=== PATIENT | male | born 1960 | race Caucasian/White ===

== ENCOUNTER 2022-03-12 12:47 | Inpatient (IN) | payer OTHER ==
[~2022-03-12] VITALS: Ht 170.2 cm; Wt 85.0 kg
[2022-03-12] VITALS (332 sets, daily range): BP systolic 58–99; BP diastolic 38–69; PULSE 124–127; TEMP 98–98.2; O2SAT 35–100
[2022-03-12] MEDS ORDERED: VENTOLIN0.09 MG IH (13:06)
[2022-03-12] MEDS ORDERED: PRILOSEC 20MG20 MG PO (13:06)
[2022-03-12] MEDS ORDERED: RT ADVAIR 128 DISKUS IH (13:06)
[2022-03-12] MEDS ORDERED: THALITONE PO (13:07)
[2022-03-12] MEDS ORDERED: ZOCOR 40MG40 MG PO (13:08)
[2022-03-12] MEDS ORDERED: ADALAT CC60 MG PO (13:08)
[2022-03-12] MEDS ORDERED: SINGULAIR 110 MG/TAB PO (13:08)
[2022-03-12] MEDS ORDERED: COZAAR100 MG PO (13:09)
[2022-03-12] MEDS ORDERED: ASTELIN NASAL S34 ML NS (13:09)
[2022-03-12] MEDS ORDERED: MOBIC15 MG PO (13:10)
[2022-03-12 13:20] LABS: HEMATOCRIT 39.5 % (42.0-52.0); MEAN CELL VOLUME 89 fl (80.0-100.0); MEAN CORPUSCULAR HEMOGLOBIN 29 pg (27-31); MEAN CORPUSCULAR HGB CONC 33 g/dl (33.0-37.0); MEAN PLATELET VOLUME 10.2 fl (7.4-10.4); PLATELET COUNT 276 K/mm3 (130-400); RED BLOOD COUNT 4.46 M/mm3 (4.20-5.60); REDCELL DISTRIBUTION WIDTH-CV 12.9 % (11.5-14.5)
[2022-03-12 13:34] LABS: ALANINE AMINOTRANSFERASE 30 U/L (0-55); ALBUMIN 2.8 gm/dL (3.4-4.8); ALKALINE PHOSPHATASE 111 U/L (40-150); ANION GAP 23 mmol/L (7-16); AST,SGOT 187 U/L (5-34); BILIRUBIN,TOTAL 1.2 mg/dL (0.2-1.2); BLOOD UREA NITROGEN 51 mg/dL (8-26); CALCIUM 9.3 mg/dL (8.4-10.2); CARBON DIOXIDE 22 mmol/L (23-31); CHLORIDE 96 mmol/L (98-107); CREATININE, serum 4.88 mg/dL (0.72-1.25); GLUCOSE 113 mg/dL (70-99); POTASSIUM 3.8 mmol/L (3.5-4.5); SODIUM 141 mmol/L (136-145); TOTAL PROTEIN 6.8 gm/dL (6.2-8.1)
[2022-03-12 13:40] LABS: TROPONIN-I < 0.010 ng/mL (0.00-0.033)
[2022-03-12 13:50] LABS: BAND 57 % (0-10); LYMPHOCYTE 10 % (20.0-51.0); METAMYELOCYTE 4 % (0-0); MYELOCYTE 1 % (0-0); NEUTROPHILS 14 % (42.0-75.2); PLATELET ESTIMATE NORMAL (NORMAL)
--- NOTE | 2022-03-12 14:30 | NUR ---
1430 patient arrived to unit; patient alert and oriented; blood pressure 93/70; on arrival to unit patient started levophed and bolus fluids going. Dr. shipley and tony. new orders obtained
[2022-03-12 15:20] LABS: INR 1.2 (0.8-3.0); PROTHROMBIN TIME 13.8 SECONDS (9.7-12.8)
[2022-03-12 15:20] LABS: ALANINE AMINOTRANSFERASE 23 U/L (0-55); ALBUMIN 2.7 gm/dL (3.4-4.8); ALKALINE PHOSPHATASE 110 U/L (40-150); AST,SGOT 179 U/L (5-34); BILIRUBIN,TOTAL 1.1 mg/dL (0.2-1.2); LIPASE 183 U/L (8-78); TOTAL PROTEIN 6.6 gm/dL (6.2-8.1); TROPONIN-I < 0.010 ng/mL (0.00-0.033)
[2022-03-12 15:22] LABS: PARTIAL THROMBOPLASTIN TIME 33.1 SECONDS (26.0-37.0)
[2022-03-12 15:25] LABS: C-REACTIVE PROTEIN 46.72 mg/dL (0.00-0.50)
--- NOTE | 2022-03-12 15:42 | NUR ---
1330- PT TO MEDICAL FLOOR ROOM 359- ASSESSMENT COMPLETED. VITALS OBTAINED. BP LOW. DR. MAURO CONTACTED RECEIVED ORDERS. PLEASE SEE EMAR. PT PLACED IN [place] POSITION. 1344- PT BP IS 74/49 1418- 66/50 DR. MAURO NOTIFIED OF PATIENTS CONTINUED LOW BP. ORDERS RECEIVED. PT MOVED TO ICU. DR. YAÑEZ NOITIFIED OF CONSULT. REPORT GIVEN TO JARROD BERGERON IN ICU BEDSIDE AT 1430. CARE RELINQUISED.
[2022-03-12 15:47] LABS: BILIRUBIN,DIRECT 0.8 mg/dL (0.0-0.5)
--- NOTE | 2022-03-12 19:45 | NUR ---
Received report from JARROD Shen.
--- NOTE | 2022-03-12 21:00 | NUR ---
Patient resting quietly in bed. NG tube to right nare to LIS with brown, clear drainage. Patient tachycardic ranging 115-125, SR; all other vitals within normal limits. Patient is on room air. He continues to receive levophed drip, see IV drip titrations. Patient reports mild abdominal pain that is worse with palpation and movement. He denies needing PRN pain medication at this time. Left hip incision site is covered with an aquacell dressing that is clean, dry, and intact.
[2022-03-12 22:34] LABS: CREATININE, serum 5.04 mg/dL (0.72-1.25)
[2022-03-12 22:40] LABS: FRACTIONAL EXCRETION OF NA+ 0.64 %
[2022-03-12 22:46] LABS: CREATININE, serum 5.09 mg/dL (0.72-1.25); POTASSIUM 3.8 mmol/L (3.5-4.5)
--- NOTE | 2022-03-12 23:00 | NUR ---
Attempted to contact Dr. Sherwood regarding patient's poor urine output as reported by day shift RN, Hermelinda. At this time, patient has voided a total of approximately 25mL urine for NOC shift. Dr. Sherwood did not answer; a message was left to call back. Notified Dr. Paul with [facility]. Dr. Paul voiced concern for abdominal compartment syndrome and requested that a STAT abdominal pressure be obtained in addition to a repeat BMP. Abdominal pressure reading of [address] Paul notified. No further orders received at this time as an attempt to notify nephrology has already been made.
[2022-03-12 23:28] LABS: MAGNESIUM 1.8 mg/dL (1.6-2.6)
[2022-03-13] VITALS (1075 sets, daily range): BP systolic 79–103; BP diastolic 46–75; PULSE 110–125; TEMP 97.7–98.1; O2SAT 43–100
[2022-03-13 09:23] LABS: ANION GAP 23 mmol/L (7-16); BLOOD UREA NITROGEN 72 mg/dL (8-26); CARBON DIOXIDE 18 mmol/L (23-31); CHLORIDE 97 mmol/L (98-107); CREATININE, serum 5.53 mg/dL (0.72-1.25); GLUCOSE 89 mg/dL (70-99); LIPASE 35 U/L (8-78); POTASSIUM 3.9 mmol/L (3.5-4.5); SODIUM 138 mmol/L (136-145)
--- NOTE | 2022-03-13 10:24 | NUR ---
Initial visit; Patient thanked Crepe Machine Operator for looking in on him and offering spiritual care. He appeared to not be interested in further care.
--- NOTE | 2022-03-13 10:28 | NUR ---
MILY met with the patient and his , Melba (ph#[phone]), to discuss discharge plan. The patient lives in [place] with his . He reports independence with ADLs and has a cane, walker, and a wheelchair available if needed. The patient's PCP is Dr. Momo Castaneda and he receives his medications from [facility] on [address] in . He reports no difficulties obtaining his meds. The patient does not have a DPOA-HC, but he was interested in obtaining a form. MILY provided. The patient had a hip replacement on Friday. He got outpatient PT set up at [facility] in . The patient states that plan is to return home with his and receive outpatient PT at [facility] upon discharge. No additional needs at this time. *Discharge plan: home with and outpatient PT*
[2022-03-13 11:41] LABS: ALBUMIN 2.3 gm/dL (3.4-4.8); ALKALINE PHOSPHATASE 98 U/L (40-150); AST,SGOT 108 U/L (5-34); BILIRUBIN,TOTAL 0.9 mg/dL (0.2-1.2); TOTAL PROTEIN 6.1 gm/dL (6.2-8.1)
[2022-03-13 11:42] LABS: ALANINE AMINOTRANSFERASE < 6 U/L (0-55)
[2022-03-13 12:56] LABS: HEMATOCRIT 35.4 % (42.0-52.0); HEMOGLOBIN 11.5 g/dl (13.5-18.0); MEAN CELL VOLUME 90 fl (80.0-100.0); MEAN CORPUSCULAR HEMOGLOBIN 29 pg (27-31); MEAN CORPUSCULAR HGB CONC 33 g/dl (33.0-37.0); MEAN PLATELET VOLUME 10.9 fl (7.4-10.4); PLATELET COUNT 242 K/mm3 (130-400); RED BLOOD COUNT 3.94 M/mm3 (4.20-5.60); REDCELL DISTRIBUTION WIDTH-CV 12.9 % (11.5-14.5)
[2022-03-13 12:57] LABS: BAND 54 % (0-10); EOSINOPHIL 1 % (0-4); LYMPHOCYTE 24 % (20.0-51.0); METAMYELOCYTE 8 % (0-0); MYELOCYTE 1 % (0-0); NEUTROPHILS 5 % (42.0-75.2); PLATELET ESTIMATE NORMAL (NORMAL)
--- NOTE | 2022-03-13 18:27 | NUR ---
0630[facility] FROM JARROD FRAUSTO. PT RESTING IN BED. NS INFUSING AT 150ML/HR, LEVOPHED AT 36.8ML/HR, BOTH TO RED PORT OF PICC LINE TO R UPPER ARM. PICC LINE FLUSHES EASILY AND GOOD BLOOD RETURN NOTED TO BOTH LUMENS. DRESSING CDI. LAM IN PLACE. NG TO R NARE ON LOW INTERMITENT SUCTION. THERE ARE NO MEASUREMENT NUMBERS ON TUBING, TUBING MEASURES 64CM FROM NARE TO BLUE HUB WHERE NG HOOKS TO SUCTION TUBING. 0800 IAP MEASUREMENT DONE, READING IS 4MMHG, DR YAÑEZ NOTIFIED. 1130 PT SITS ON SIDE OF BED. GOOD MOBILITY NOTED. DRESSING TO L HIP IS CDI. PT DOES APPLY ICE INTERMITTENLY THROUGHOUT THE DAY. [place] HO[place] ARE IN PLACE TO BOTH LEGS, NO SWELLING NOTED, GOOD PEDAL PULSES PALPATED. 1300 PT UP TO BEDSIDE COMMODE FOR BM. MEDIUM LIQUID STOOL. [address] MAURO TO NOTIFY HIM OF URINE OUTPUT OF 90ML THIS SHIFT. NO NEW ORDERS RECEIVED. DR KILGORE CANCEL ORDER FOR UA NURSE IS UNABLE TO OBTAIN SPECIMEN. 1830 PT HAS HAD ICE CHIPS THROUGHOUT THE DAY FOR A TOTAL OF 400ML PO INTAKE, 90ML OF URINE FROM LAM, AND 1650 OF LIGHT GREEN DRAINAGE TO NG SUCTION CANISTER. AT TIME OF THIS NOTE PT IS RESTING IN BED, DENIES NEEDS. CALL LIGHT IN REACH.
[2022-03-14] VITALS (1375 sets, daily range): BP systolic 96–123; BP diastolic 65–82; PULSE 110–120; TEMP 97.7–98.1; O2SAT 81–100
[2022-03-14 06:12] LABS: HEMOGLOBIN 10.1 g/dl (13.5-18.0); MEAN CELL VOLUME 88 fl (80.0-100.0); MEAN CORPUSCULAR HEMOGLOBIN 29 pg (27-31); MEAN CORPUSCULAR HGB CONC 33 g/dl (33.0-37.0); MEAN PLATELET VOLUME 11.4 fl (7.4-10.4); PLATELET COUNT 184 K/mm3 (130-400); RED BLOOD COUNT 3.46 M/mm3 (4.20-5.60); REDCELL DISTRIBUTION WIDTH-CV 13.2 % (11.5-14.5)
[2022-03-14 06:16] LABS: HEMATOCRIT 30.3 % (42.0-52.0)
[2022-03-14 06:26] LABS: CALCIUM 7.5 mg/dL (8.4-10.2); CREATININE, serum 6.77 mg/dL (0.72-1.25); POTASSIUM 3.8 mmol/L (3.5-4.5)
[2022-03-14 06:48] LABS: BAND 47 % (0-10); EOSINOPHIL 4 % (0-4); LYMPHOCYTE 12 % (20.0-51.0); NEUTROPHILS 26 % (42.0-75.2); PLATELET ESTIMATE NORMAL (NORMAL)
[2022-03-14 08:32] LABS: PATHOLOGY DIFF REVIEW OK
[2022-03-15] VITALS (769 sets, daily range): BP systolic 94–129; BP diastolic 60–77; PULSE 71–117; TEMP 97.5–98.7; O2SAT 74–100
[2022-03-15 04:35] LABS: MEAN CELL VOLUME 86 fl (80.0-100.0); MEAN CORPUSCULAR HGB CONC 33 g/dl (33.0-37.0); MEAN PLATELET VOLUME 10.4 fl (7.4-10.4); PLATELET COUNT 119 K/mm3 (130-400); RED BLOOD COUNT 2.83 M/mm3 (4.20-5.60)
[2022-03-15 04:44] LABS: CREATININE, serum 5.89 mg/dL (0.72-1.25); POTASSIUM 3.4 mmol/L (3.5-4.5)
[2022-03-15 04:46] LABS: HEMATOCRIT 24.4 % (42.0-52.0); MEAN CORPUSCULAR HEMOGLOBIN 29 pg (27-31)
[2022-03-15 04:48] LABS: HEMOGLOBIN 8.1 g/dl (13.5-18.0)
[2022-03-15 05:06] LABS: CALCIUM 7.3 mg/dL (8.4-10.2)
--- NOTE | 2022-03-15 07:00 | NUR ---
BEDSIDE REPORT RECEIVED FROM JARROD ERNANDEZ. NG TUBE TO LIS. PT ALLOWED ICE CHIPS AT THIS TIME. DRESSING TO LEFT HIP SITE CLEAN, DRY, AND INTACT. PICC LINE TO RIGHT UPPER ARM. FC TO DEPENDENT DRDAINAMARGARITA. PT ALERT AND ORIENTED THIS AM. OFFERS NO COMPLAINTS.
[2022-03-15 11:10] LABS: MEAN CELL VOLUME 87 fl (80.0-100.0); MEAN CORPUSCULAR HGB CONC 33 g/dl (33.0-37.0); MEAN PLATELET VOLUME 10.3 fl (7.4-10.4); PLATELET COUNT 143 K/mm3 (130-400); RED BLOOD COUNT 3.54 M/mm3 (4.20-5.60); REDCELL DISTRIBUTION WIDTH-CV 13.2 % (11.5-14.5)
[2022-03-15 11:16] LABS: HEMATOCRIT 30.8 % (42.0-52.0); HEMOGLOBIN 10.2 g/dl (13.5-18.0); MEAN CORPUSCULAR HEMOGLOBIN 29 pg (27-31)
--- NOTE | 2022-03-15 14:39 | NUR ---
PT BEING DOWNGRADED TO MEDICAL STATUS. REPORT GIVEN TO JARROD MIMS. PT'S AWARE OF TRANSFER.
--- NOTE | 2022-03-15 15:00 | NUR ---
PT TRASFERRED TO ROOM 324 VIA WHEELCHAIR FROM ICU. VS ARE STABLE. ASSESSMENT AND MED REC COMPLETED. PT DENIES PAIN AND ANY OTHER NEEDS AT THIS TIME. CALL LIGHT WITHIN REACH.
[2022-03-15] MEDS ORDERED: ASPIRIN E.C. 8181 MG PO (15:22)
[2022-03-15] MEDS ORDERED: ROXICODONE 55 MG/TAB PO (15:23)
--- NOTE | 2022-03-15 20:00 | NUR ---
PT IN BED, ASSISTED TO BATHROOM WITH WALKER AND STEADY GAIT. HAS RYLAN DRSG TO LT HIP D/I. HAS RT PICC WITH IVF INFUSING AT 150CC/HR. REPORTS LOOSE STOOLS. LAM CATHETER TO BSD WITH YELLOW URINE. MILD LOWER EXT EDEMA PRESENT. IS ALERT AND ORIENTED X4. SLIGHTLY SHORT OF BREATH WITH ACTIVITY, WEARING OXYGEN AT 2L/NC, RESCUE INHALER AT BEDSIDE. TEDS AND SCDS ON.
[2022-03-16 03:51] VITALS: BP 142/70; PULSE 95; TEMP 98.3
--- NOTE | 2022-03-16 05:00 | NUR ---
LAB DRAWN FROM PICC. DENIES PAIN. IVF CONTINUE AT 150CC/HR.
[2022-03-16 08:00] VITALS: BP 142/88; PULSE 100; TEMP 97.8
[2022-03-16 10:59] LABS: MEAN CELL VOLUME 88 fl (80.0-100.0); MEAN CORPUSCULAR HGB CONC 33 g/dl (33.0-37.0); MEAN PLATELET VOLUME 11.2 fl (7.4-10.4); PLATELET COUNT 127 K/mm3 (130-400); RED BLOOD COUNT 3.12 M/mm3 (4.20-5.60); REDCELL DISTRIBUTION WIDTH-CV 13.7 % (11.5-14.5)
[2022-03-16 11:02] LABS: HEMATOCRIT 27.3 % (42.0-52.0); HEMOGLOBIN 9.1 g/dl (13.5-18.0); MEAN CORPUSCULAR HEMOGLOBIN 29 pg (27-31)
[2022-03-16 11:29] LABS: ALBUMIN 1.7 gm/dL (3.4-4.8); CALCIUM 7.9 mg/dL (8.4-10.2); CREATININE, serum 6.73 mg/dL (0.72-1.25); PHOSPHOROUS 6.3 mg/dL (2.3-4.7); POTASSIUM 3.2 mmol/L (3.5-4.5)
[2022-03-16 11:40] LABS: BAND 19 % (0-10); EOSINOPHIL 1 % (0-4); LYMPHOCYTE 9 % (20.0-51.0); NEUTROPHILS 59 % (42.0-75.2); PLATELET ESTIMATE NORMAL (NORMAL)
[2022-03-16 12:00] VITALS: BP 128/74; PULSE 102; TEMP 97.8
[2022-03-16 16:00] VITALS: BP 131/77; PULSE 98; TEMP 98.5
[2022-03-16 19:41] VITALS: BP 131/84; PULSE 104; TEMP 98.1
--- NOTE | 2022-03-16 20:00 | NUR ---
PT ASSISTED TO BATHROOM TO VOID, CATHETER REMOVED TODAY. CONTINUES TO HAVE ARM AND LEG SWELLING. RT PICC FLUSHES WELL. VOIDS YELLOW URINE. BACK TO BED WITH SHORTNESS OF BREATH NOTED. AQUACEL INTACT TO LEFT HIP. TAKING CLEAR LIQUIDS WITHOUT N/V. DENIES NEED FOR PAIN MEDS.
[2022-03-17] VITALS (7 sets, daily range): BP systolic 113–138; BP diastolic 70–83; PULSE 94–105; TEMP 97.7–98.5
--- NOTE | 2022-03-17 08:00 | NUR ---
PATIENT IS A&O AND SITTING UP IN BEDSIDE CHAIR. VSS. DENIES COMPLAINTS. LEFT HIP DRESSING IS CD&I WITH AQUACEL. PATIENT REFUSING ICE PACK FOR LEFT HIP AT THIS TIME DUE TO FEELING COLD. ROOM TEMP TURNED UP AND ANOTHER BLANKET GIVEN TO PATIENT. CLEAR LIQUID TRAY ORDERED. AM MEDS GIVEN. IV ABX INFUSING VIA PUMP INTO RIGHT PICC. HEAD TO TOE ASSESSMENT COMPLETE. NO OTHER NEEDS AT THIS TIME. CALL LIGHT IN REACH.
[2022-03-17 10:32] LABS: MEAN CELL VOLUME 89 fl (80.0-100.0); MEAN CORPUSCULAR HGB CONC 33 g/dl (33.0-37.0); MEAN PLATELET VOLUME 10.1 fl (7.4-10.4); PLATELET COUNT 143 K/mm3 (130-400); RED BLOOD COUNT 3.37 M/mm3 (4.20-5.60); REDCELL DISTRIBUTION WIDTH-CV 13.8 % (11.5-14.5)
[2022-03-17 10:38] LABS: HEMATOCRIT 29.9 % (42.0-52.0); HEMOGLOBIN 9.8 g/dl (13.5-18.0); MEAN CORPUSCULAR HEMOGLOBIN 29 pg (27-31)
[2022-03-17 10:46] LABS: CALCIUM 8.6 mg/dL (8.4-10.2); CREATININE, serum 7.09 mg/dL (0.72-1.25); PHOSPHOROUS 5.9 mg/dL (2.3-4.7); POTASSIUM 3.3 mmol/L (3.5-4.5)
--- NOTE | 2022-03-17 11:00 | NUR ---
NEPHROLOGY P.A. MAKING ROUNDS. NURSING EXPRESSED CONCERN ABOUT NO DAILY LAB ORDERED AND HIS BUN & CREAT HAVE BEEN TRENDING UP. NURSING ALSO EXPRESSED CONCERNS ABOUT PATIENTS NUTRITIONAL STATUS. PATIENT HAS NOT ATE IN APPROX 6 DAYS OR MORE. CURRENTLY ON CLEAR LIQUID DIET AND PATIENT'S SERUM ALBUMIN IS NOW 2.0. PATIENT DENIES N/V. PATIENT IS ALSO BURPING A LOT AND PASSING FLATUS. WITH PATIENT'S CURRENT PICC LINE ACCESS, NURSING ASKED NEPHROLOGY, WHO IS ACTING PATIENT'S ATTENDING, IF TPN WOULD BE CONSIDERED/APPROPRIATE WHICH WAS DENIED AT THIS TIME. NEPHROLOGY ALSO MENTIONED SURGICAL CONSULT AND INQUIRED TO WHY PATIENT HAS NOT BEEN SEEN HOWEVER, UPON REVIEWING THE CHART NO SURGICAL CONSULT HAD BEEN ORDERED. PROVIDER NOTIFIED OF MISSING ORDERS, SEE NEW ORDERS AND ORDERS FOR LABS. NURSING ALSO REPORTED INCREASE WEAKNESS AND DYSPNEA ON EXERTION. NURSING CONTINUES TO EXPRESS CONCERN WITH PATIENT'S WORSENING LABS AND OVERALL FAILURE TO IMPROVE. MYSQL DEVELOPER ALSO MADE AWARE OF NURSING CONCERNS. PATIENT IS CURRENTLY RESTING IN BED WITH HOB ELEVATED, AT BEDSIDE, AND CALL LIGHT IN REACH. WILL CONTINUE TO MONITOR.
[2022-03-17 11:08] LABS: BAND 3 % (0-10); EOSINOPHIL 1 % (0-4); LYMPHOCYTE 13 % (20.0-51.0); METAMYELOCYTE 4 % (0-0); MYELOCYTE 1 % (0-0); NEUTROPHILS 69 % (42.0-75.2); NUCLEATED RED BLOOD CELL 1 (0-6)
[2022-03-17 11:09] LABS: PLATELET ESTIMATE NORMAL (NORMAL)
--- NOTE | 2022-03-17 12:48 | NUR ---
RADIOLOGY AT BEDSIDE
--- NOTE | 2022-03-17 14:45 | NUR ---
PATIENT'S IV POTASSIUM COMPLETE. PICC LINE FLUSHES EASILY. PATIENT REQUESTING TO GO TO THE BATHROOM AND THEN FOR A WALK WITH HIS BEFORE GETTING HIS IV HOOKED BACK UP. PATIENT NOW IN BATHROOM
[2022-03-17 20:12] LABS: CREATININE, serum 6.95 mg/dL (0.72-1.25)
[2022-03-17 20:15] LABS: FRACTIONAL EXCRETION OF NA+ 47.68 %
--- NOTE | 2022-03-17 20:50 | NUR ---
PT UP TO VOID, IMMEDIATELY AFTER LAB DRAWN FROM PICC. PT AMBULATES BACK TO BED WITH WALKER. DYSPNEA WITH EXERTION. PASSING GAS AND BELCHING LOUDLY. ABD DISTENDED, BRUISING TO LEFT LOWER ABD R/T HEPARIN INJECTIONS. RT PICC WITH SODIUM BICARD GTT AT 50CC/HR. LEFT HIP DRSG MANNY D/I. HAS PITTING EDEMA TO BLE AND RT ARM. DENIES DIARRHEA. TAKING CLEAR LIQUIDS.
[2022-03-18 03:10] VITALS: BP 134/76; PULSE 97; TEMP 97.4
--- NOTE | 2022-03-18 04:56 | NUR ---
PT HAS RESTED FAIR. IVF CONTINUE. ANTIBIOTIC COMPLETED AND LINES FLUSHED.
--- NOTE | 2022-03-18 05:47 | NUR ---
PT WEIGHT SHOWS 5% VARIANCE. DID ZERO OUT PT BED PRIOR TO WEIGHING PT. PT HAS SIGNIFICANT EDEMA.
[2022-03-18 06:47] LABS: MEAN CELL VOLUME 90 fl (80.0-100.0); MEAN CORPUSCULAR HGB CONC 32 g/dl (33.0-37.0); MEAN PLATELET VOLUME 10.8 fl (7.4-10.4); PLATELET COUNT 176 K/mm3 (130-400); RED BLOOD COUNT 3.06 M/mm3 (4.20-5.60); REDCELL DISTRIBUTION WIDTH-CV 13.5 % (11.5-14.5)
[2022-03-18 06:51] LABS: HEMATOCRIT 27.5 % (42.0-52.0); HEMOGLOBIN 8.9 g/dl (13.5-18.0); MEAN CORPUSCULAR HEMOGLOBIN 29 pg (27-31)
[2022-03-18 07:11] LABS: CALCIUM 8.5 mg/dL (8.4-10.2); CREATININE, serum 6.97 mg/dL (0.72-1.25); PHOSPHOROUS 6.6 mg/dL (2.3-4.7); POTASSIUM 3.3 mmol/L (3.5-4.5)
[2022-03-18 08:07] VITALS: BP 135/81; PULSE 96; TEMP 97.2
[2022-03-18 08:22] LABS: BAND 5 % (0-10); LYMPHOCYTE 11 % (20.0-51.0); MYELOCYTE 1 % (0-0)
[2022-03-18 08:23] LABS: METAMYELOCYTE 2 % (0-0); NEUTROPHILS 73 % (42.0-75.2); PLATELET ESTIMATE NORMAL (NORMAL)
[2022-03-18 08:24] LABS: HYPOCHROMIA 1+
--- NOTE | 2022-03-18 08:40 | NUR ---
PT SITTING UP IN BEDSIDE CHAIR ON ROOM AIR. PT STATES THAT HE IS NOT HAVING ANY PAIN AT THIS TIME. "I JUST HAVE PRESSURE IN MY BELLY." PT STATES THAT HE WOULD LIKE TO HAVE A SHEET AND BLANKET OVER HIS LEGS AND A BREAKFAST TRAY ORDERED. ALL ITEMS WERE GIVEN TO PT. LEFT HIP AQUACELL IS DRY AND INTACT. PT STATES NO OTHER NEEDS/CONCERNS AT THIS TIME. CALL LIGHT IS WITHIN REACH.
--- NOTE | 2022-03-18 09:54 | NUR ---
MILY met with the patient and his to follow up. The patient is doing well and is ready to get home. The patient and his had no questions or concerns for SW. They confirm plan to return home with ready. No additional needs at this time. *Discharge plan: home with and resume outpatient PT*
--- NOTE | 2022-03-18 10:16 | NUR ---
PT OFF FLOOR TO CT SCAN
--- NOTE | 2022-03-18 10:38 | NUR ---
PT RETURNED FROM CT
[2022-03-18 12:15] VITALS: BP 118/71; PULSE 100; TEMP 97.8
[2022-03-18 15:46] VITALS: BP 141/75; PULSE 93; TEMP 98
[2022-03-18 18:57] LABS: ALBUMIN 2.1 gm/dL (3.4-4.8); CALCIUM 8.6 mg/dL (8.4-10.2); CREATININE, serum 6.69 mg/dL (0.72-1.25); PHOSPHOROUS 6.1 mg/dL (2.3-4.7); POTASSIUM 3.3 mmol/L (3.5-4.5)
[2022-03-18 20:23] VITALS: BP 119/77; PULSE 103; TEMP 98.4
--- NOTE | 2022-03-18 20:30 | NUR ---
NG tube placement attempted at this time. Three attempts were made. First attempt with a 18 Fr., second with a 16 fr, and third attempt with a 14 fr. All attempts met resistance in the nasal cannal. Dr. Ramirez notified of difficulty. Per Ashley, hold on further attempts.
--- NOTE | 2022-03-18 20:40 | NUR ---
Pt. sitting up in bed. Pt. is A&OX3, assessment complete. PICC to rt. upper arm patent. Pt. denies pain or other needs, call light within reach.
--- NOTE | 2022-03-18 23:56 | NUR ---
Pt. attempted to get up to go to the bathroom and caused nose to start bleeding again. Using tissues we have attempted to stop the bleeding, also tried a tampon without success. Dr. Sherwood notified, asked to call Dr. Todd. Dr. todd recommendtations received.
[2022-03-19] VITALS (762 sets, daily range): BP systolic 62–116; BP diastolic 37–82; PULSE 98–138; TEMP 36.3–36.6; O2SAT 46–100
--- NOTE | 2022-03-19 01:47 | NUR ---
Dr. ridley at bedside placing rhino rocket. Pt. has had 300ml blood drainage in the suction canister from suctioning mouth with yankor. Dr. Sherwood notified. Ordered to draw am labs now.
[2022-03-19 02:00] LABS: HEMATOCRIT 23.5 % (42.0-52.0); HEMOGLOBIN 7.6 g/dl (13.5-18.0); MEAN CELL VOLUME 90 fl (80.0-100.0); MEAN CORPUSCULAR HEMOGLOBIN 29 pg (27-31); MEAN CORPUSCULAR HGB CONC 32 g/dl (33.0-37.0); PLATELET COUNT 214 K/mm3 (130-400); RED BLOOD COUNT 2.62 M/mm3 (4.20-5.60); REDCELL DISTRIBUTION WIDTH-CV 13.5 % (11.5-14.5)
[2022-03-19 02:18] LABS: ALBUMIN 1.9 gm/dL (3.4-4.8); ALKALINE PHOSPHATASE 64 U/L (40-150); ANION GAP 28 mmol/L (7-16); AST,SGOT 13 U/L (5-34); BAND 7 % (0-10); BILIRUBIN,TOTAL 0.5 mg/dL (0.2-1.2); BLOOD UREA NITROGEN 90 mg/dL (8-26); CALCIUM 8.1 mg/dL (8.4-10.2); CHLORIDE 99 mmol/L (98-107); CREATININE, serum 6.45 mg/dL (0.72-1.25); GLUCOSE 95 mg/dL (70-99); LYMPHOCYTE 12 % (20.0-51.0); METAMYELOCYTE 3 % (0-0); NEUTROPHILS 72 % (42.0-75.2); PLATELET ESTIMATE NORMAL (NORMAL); POTASSIUM 3.7 mmol/L (3.5-4.5); SODIUM 139 mmol/L (136-145)
[2022-03-19 02:19] LABS: ALANINE AMINOTRANSFERASE < 6 U/L (0-55)
[2022-03-19 02:20] LABS: CARBON DIOXIDE 12 mmol/L (23-31)
--- NOTE | 2022-03-19 02:30 | NUR ---
Rhino rockets have been in place and bleeding continued. Dr. Ramirez notified. Orders for ENT consult. Dr. Cedillo notified. Pt. situation given to Dr. Cedillo. Dr. Sherwood also notified of changes. New orders received from Dr. Sherwood and Dr. Cedillo. Dr. Cedillo to come in and assess pt.
--- NOTE | 2022-03-19 03:48 | NUR ---
Unit of FFP started at this time. Pt. tolerating. Will monitor.
--- NOTE | 2022-03-19 04:02 | NUR ---
Pt. tolerating FFP. Rate increased. Pt. to transfer to ICU.
--- NOTE | 2022-03-19 04:40 | NUR ---
Total blood lose that we were able to collect in the suction canister was 600ml.
--- NOTE | 2022-03-19 04:40 | NUR ---
Pt. to ICU 1. Report given to JARROD Ferreira.
--- NOTE | 2022-03-19 05:24 | NUR ---
JUST RECIEVED PATIENT FROM SURGICAL WITH ACTIVE NOSE BLEED IV INFUSING BLOOD AT THIS TIME
--- NOTE | 2022-03-19 08:00 | NUR ---
SHIFT REPORT RECEIVED. PT EXPERIENCING EPISTAXIS BL NARES. RHINO ROCKETS IN PLACE TO CONTROL BLEEDING. LT SIDE REMOVED BY ENT AT 0830. PT WITH COURSE LUNG SOUNDS. ON 4L O2 VIA OXYMASK. ABD DISTENDED AND FIRM. PT REPORTS NO PAIN IN ABD. BOWEL SOUNDS PRESENT IN ALL QUADRANTS. PT WITH +2 PITTING EDEMA IN BLE. PT WITH NON-PITTING EDEMA IN RT HAND.
[2022-03-19 09:15] LABS: HEMATOCRIT 23.9 % (42.0-52.0); HEMOGLOBIN 7.8 g/dl (13.5-18.0)
[2022-03-19 10:48] LABS: MAGNESIUM 2.1 mg/dL (1.6-2.6)
[2022-03-19 10:49] LABS: INR 1.2 (0.8-3.0); PROTHROMBIN TIME 14.3 SECONDS (9.7-12.8)
--- NOTE | 2022-03-19 16:00 | NUR ---
PT IN SX. TEODORA AT THIS TIME.
[2022-03-19 20:39] LABS: INR 1.1 (0.8-3.0); PROTHROMBIN TIME 12.3 SECONDS (9.7-12.8)
--- NOTE | 2022-03-19 20:45 | NUR ---
PT BROUGHT TO ROOM FROM PACU. RN X2 IN ROOM. PT CHANGED FROM AMBUBAG TO VENT SET UP. ANESTHESIOLOGIST IN ROOM. VOICED SETTING PLACED IN VENTILATOR. ANESTHESIOLOGIST AGREED WITH SETTING AT THIS TIME. PT HOB INITIALLY ELEVATED BUT WAS LOWERED TO WORK WITH PATIENT IN ICU. PT ET TUBE STRAP/GRAHAM PLACED AND ADJUSTED. TUBE CUFF PRESSURE CHECKED. TAPING ON FACE REMOVED.
[2022-03-19 21:05] LABS: MEAN CELL VOLUME 93 fl (80.0-100.0); MEAN CORPUSCULAR HGB CONC 32 g/dl (33.0-37.0); MEAN PLATELET VOLUME 10.8 fl (7.4-10.4); PLATELET COUNT 264 K/mm3 (130-400); REDCELL DISTRIBUTION WIDTH-CV 13.9 % (11.5-14.5)
[2022-03-19 21:08] LABS: HEMATOCRIT 15.8 % (42.0-52.0); MEAN CORPUSCULAR HEMOGLOBIN 29 pg (27-31)
[2022-03-19 21:28] LABS: ARTERIAL BLD GAS O2 SATURATION 97.9 % (92-100); ARTERIAL BLD GAS TCO2 CT 13.5; ARTERIAL BLOOD GAS BASE EXCESS -13.5 (-2-2); ARTERIAL BLOOD GAS HCO3 12.5 meq/L (22-26); ARTERIAL BLOOD GAS PCO2 29.6 mmHg (35-45); ARTERIAL BLOOD GAS pH 7.25 (7.35-7.45)
[2022-03-19 21:35] LABS: ARTERIAL BLOOD GAS PO2 139.8 mmHg (80-100)
[2022-03-19 21:40] LABS: ALANINE AMINOTRANSFERASE < 6 U/L (0-55); ALBUMIN 1.5 gm/dL (3.4-4.8); ALKALINE PHOSPHATASE 48 U/L (40-150); ANION GAP 25 mmol/L (7-16); AST,SGOT 11 U/L (5-34); BILIRUBIN,TOTAL 0.3 mg/dL (0.2-1.2); BLOOD UREA NITROGEN 103 mg/dL (8-26); CALCIUM 7.1 mg/dL (8.4-10.2); CHLORIDE 104 mmol/L (98-107); CREATININE, serum 6.04 mg/dL (0.72-1.25); GLUCOSE 229 mg/dL (70-99); MAGNESIUM 1.9 mg/dL (1.6-2.6); PHOSPHOROUS 8.7 mg/dL (2.3-4.7); POTASSIUM 4.1 mmol/L (3.5-4.5); SODIUM 143 mmol/L (136-145); TOTAL PROTEIN 3.6 gm/dL (6.2-8.1)
[2022-03-19 21:42] LABS: CARBON DIOXIDE 14 mmol/L (23-31)
[2022-03-19 21:58] LABS: BAND 9 % (0-10); HYPOCHROMIA 1+; LYMPHOCYTE 7 % (20.0-51.0); NEUTROPHILS 83 % (42.0-75.2); PLATELET ESTIMATE NORMAL (NORMAL)
--- NOTE | 2022-03-19 23:44 | NUR ---
FFP RATE INCREASED OUTSIDE OF POLICY PER DR. YAÑEZ AT BEDSIDE
[2022-03-20] VITALS (946 sets, daily range): BP systolic 53–197; BP diastolic 42–111; PULSE 71–146; TEMP 36.3–36.7; O2SAT 88–100
--- NOTE | 2022-03-20 00:52 | NUR ---
PATIENT RETURNED TO ICU BED 1 FROM OR 03/19/22 AT 1952. UPON ARRIVAL, PATIENT INTUBATED; LAM AND ARTERIAL LINE PLACED IN THE OR. PATIENT HYPOTENSIVE 74/45. BP CUFF AND ART LINE CORRELATING. DR. MAURO CONTACTED UPON PATIENT'S RETURN. HE STATED THAT HE WOULD NOT PLACE VENTILATOR OR SEDATION ORDERS. ALSO DID NOT ORDER VASOPRESSORS. RN WAS INSTRUCTED TO CONSULT DR. YAÑEZ FOR ORDERS. SPOKE WITH DR. YAÑEZ WHO STATED THAT DR. MAURO WOULD NEED TO PLACE THE ORDERS HE IS OVERSEEING THIS PATIENT. RN ASKED IF IT WAS OK TO CONSULT TELE ICU FOR ORDERS. OK PER DR YAÑEZ AND DR. MAURO. DR. GOMEZ PLACED ORDERS FOR VENT MANAGEMENT, VASOPRESSORS, AND SEDATION. PATIENT'S HGB 5.0. 4 UNITS RBCS ORDERED.
[2022-03-20 01:04] LABS: ARTERIAL BLOOD GAS BASE EXCESS -13.5 (-2-2); ARTERIAL BLOOD GAS HCO3 11.3 meq/L (22-26); ARTERIAL BLOOD GAS pH 7.32 (7.35-7.45)
--- NOTE | 2022-03-20 01:05 | NUR ---
SPOKE WITH DR. HUNT REGARDING BLOODY G TUBE OUTPUT. RN WAS INSTRUCTED TO PUT G TUBE TO LOW INTERMITTENT SUCTION. RN ASKED IF THERE WAS ANY AMOUNT OF OUTPUT TO BE CONCERNED ABOUT. DR. HUNT STATED THAT HE EXPECTS BLOODY OUTPUT AND RN DOES NOT NEED TO CALL BACK TO REPORT ANY SPECIFIC AMOUNT OF DRAINAGE
[2022-03-20 01:06] LABS: ARTERIAL BLOOD GAS PCO2 22.5 mmHg (35-45)
--- NOTE | 2022-03-20 01:59 | NUR ---
PATIENT STARTED ON MULTIPLE VASOPRESSORS. ALL TITRATED OUTSIED OF ORDERED PARAMTERS PER MD DUE TO UNTSTABLE VITALS.
--- NOTE | 2022-03-20 02:03 | NUR ---
BICARB DRIP DECREASED TO 75ML PER HOUR PER DR YAÑEZ'S ORDER TO CUT DRIP IN HALF IS PH > 7.30
--- NOTE | 2022-03-20 02:08 | NUR ---
BLOOD PRODUCTS INITIATED AT HIGHER RATE THAN PROTOCOL PER DR YAÑEZ AT BEDSIDE. 2 UNITS OF O+ RBCS AND 1 O+ FFP ADMINISTERED TO O- PATIENT PER OK FROM DR. YAÑEZ AFTER O- BLOOD ORDER DENIED BY RED CROSS. RN WAS PRESENT AT BEDSIDE DURING TRANSFUSIONS TO MONITOR PATIENT. PATIENT TOLERATED ALL TRASFUSIONS WITH NO REACTIONS NOTED.
--- NOTE | 2022-03-20 03:04 | NUR ---
RN X1 IN ROOM. RT X2 IN ROOM TO PERFORM VENT CHECK AND ORAL CARE. BREATH SOUNDS WERE CLEAR THROUGHOUT, AND DIMINISHED BILATERALLY IN THE BASES. NO INDICATION FOR SUCTION AT THIS TIME. RAILS UP. HOB LOWERED PRIOR TO ENTRANCE INTO ROOM BY NURSING.
[2022-03-20 03:05] LABS: HEMATOCRIT 21.2 % (42.0-52.0); HEMOGLOBIN 7.2 g/dl (13.5-18.0)
[2022-03-20 03:23] LABS: CREATININE, serum 5.34 mg/dL (0.72-1.25); POTASSIUM 4.3 mmol/L (3.5-4.5)
[2022-03-20 04:39] LABS: ARTERIAL BLD GAS O2 SATURATION 99.2 % (92-100); ARTERIAL BLD GAS TCO2 CT 21.4; ARTERIAL BLOOD GAS BASE EXCESS -2.5 (-2-2); ARTERIAL BLOOD GAS HCO3 20.5 meq/L (22-26); ARTERIAL BLOOD GAS PCO2 27.3 mmHg (35-45); ARTERIAL BLOOD GAS pH 7.49 (7.35-7.45)
[2022-03-20 04:41] LABS: ARTERIAL BLOOD GAS PO2 445.4 mmHg (80-100)
--- NOTE | 2022-03-20 04:53 | NUR ---
ATTEMPTED TO CONTACT DR. MAURO X3 PHONE CALLS WITH NO ANSWER REGARDING PATIENT DETERIORATING STATUS.
[2022-03-20 05:12] LABS: MEAN CELL VOLUME 93 fl (80.0-100.0); MEAN CORPUSCULAR HGB CONC 33 g/dl (33.0-37.0); MEAN PLATELET VOLUME 11.9 fl (7.4-10.4); RED BLOOD COUNT 2.42 M/mm3 (4.20-5.60); REDCELL DISTRIBUTION WIDTH-CV 14.6 % (11.5-14.5)
[2022-03-20 05:14] LABS: PROTHROMBIN TIME 23.1 SECONDS (9.7-12.8)
[2022-03-20 05:21] LABS: HEMATOCRIT 22.4 % (42.0-52.0); HEMOGLOBIN 7.3 g/dl (13.5-18.0); MEAN CORPUSCULAR HEMOGLOBIN 30 pg (27-31)
[2022-03-20 05:24] LABS: PLATELET COUNT 96 K/mm3 (130-400)
--- NOTE | 2022-03-20 06:03 | NUR ---
SEDATION NOT DECREASED DUE TO POOR PATIENT STATUS. DR. YAÑEZ AT BEDSIDE
[2022-03-20 06:57] LABS: ALBUMIN 1.3 gm/dL (3.4-4.8); CALCIUM 6.8 mg/dL (8.4-10.2); CREATININE, serum 5.46 mg/dL (0.72-1.25); MAGNESIUM 1.5 mg/dL (1.6-2.6); PHOSPHOROUS 9.2 mg/dL (2.3-4.7); POTASSIUM 4.1 mmol/L (3.5-4.5)
[2022-03-20 06:59] LABS: ARTERIAL BLD GAS O2 SATURATION 99.3 % (92-100); ARTERIAL BLD GAS TCO2 CT 9.7; ARTERIAL BLOOD GAS BASE EXCESS -17.4 (-2-2); ARTERIAL BLOOD GAS PCO2 23.2 mmHg (35-45); ARTERIAL BLOOD GAS PO2 363.8 mmHg (80-100); ARTERIAL BLOOD GAS pH 7.21 (7.35-7.45)
[2022-03-20 07:07] LABS: BAND 20 % (0-10); LYMPHOCYTE 6 % (20.0-51.0); METAMYELOCYTE 8 % (0-0); NEUTROPHILS 66 % (42.0-75.2); PLATELET ESTIMATE DECREASED (NORMAL)
--- NOTE | 2022-03-20 07:28 | NUR ---
LEVO INITIATED AT 2009 ON 03/19 STARTING DOSE 0.1MCG/KG/MIN BHARATI STARTED AT 2044 ON 03/19. STARTING DOSE 100MCG/MIN VASO STARTED AT 2136 ON 03/19. STARTING DOSE 0.03UNITS/MIN EPI STARTED AT ON 03/20. STARTING DOSE 0.02MCG/KG/MIN DUE TO PATIENT STATUS, VASOPRESSORS ALL TITRATED RAPIDLY, NOT ACCORDING TO ORDERED PARAMETERS. DR. YAÑEZ AWARE. PATIENT MAXED ON ALL PRESSORS.
--- NOTE | 2022-03-20 07:44 | NUR ---
DRIP RAPIDLY DECREASED IN ATTEMPTS TO IMPROVE PATIENT'S LOW BLOOD PRESSURE. HOSPITALISTARIS PRESENT AT BEDSIDE
--- NOTE | 2022-03-20 08:00 | NUR ---
Pt taken to CT with 4 staff members. Tolerated well until while returning back to ICU from the scan when patient became hypotensive. Blood products to be obtained from lab and transfused KOSTA.
--- NOTE | 2022-03-20 08:45 | NUR ---
Received verbal consent per Dr. Camarena to titrate epinephrine by 0.1 mcg/kg/min.
--- NOTE | 2022-03-20 09:48 | NUR ---
Patient took a rapid decline overnight. At this time ICU physician is looking at a transfer to higher level of care.
--- NOTE | 2022-03-20 10:00 | NUR ---
INTINSIVIST GAVE VERBAL ORDER TO PLACE OG TUBE ON INTERMITTENT SUCTION. OG PLACED. PT TOLERATED WELL. DARK BLOOD DRAINAGE RETURNED FROM SUCTIONING.
[2022-03-20 10:15] LABS: ARTERIAL BLD GAS O2 SATURATION 98.9 % (92-100); ARTERIAL BLD GAS TCO2 CT 14.8; ARTERIAL BLOOD GAS BASE EXCESS -10.9 (-2-2); ARTERIAL BLOOD GAS PCO2 27.2 mmHg (35-45); ARTERIAL BLOOD GAS PO2 352.5 mmHg (80-100); ARTERIAL BLOOD GAS pH 7.33 (7.35-7.45)
--- NOTE | 2022-03-20 12:56 | NUR ---
Bedside EGD performed by Dr. Martinez; see report. Patient became tachycardic briefly and restless and sedation was inreased per Dr. Martinez. BP remained stable during procedure.
--- NOTE | 2022-03-20 13:00 | NUR ---
Received permission to titrate down levophed with irregular titration rates per patient requirements.
--- NOTE | 2022-03-20 13:19 | NUR ---
Discussed aproximate increase of 2 degrees F. after receiving multiple blood products. Dr. Camarena and Dr. Sherwood notified. No other signs or symptoms of a transfusion reaction noted at this time. Will draw H&H and ok to proceed with last unit of PRBC depending on HGB level.
[2022-03-20 13:33] LABS: HEMATOCRIT 20.9 % (42.0-52.0); HEMOGLOBIN 7.5 g/dl (13.5-18.0)
[2022-03-20 13:52] LABS: INR 1.5 (0.8-3.0); PROTHROMBIN TIME 16.8 SECONDS (9.7-12.8)
[2022-03-20 13:55] LABS: PARTIAL THROMBOPLASTIN TIME 24.9 SECONDS (26.0-37.0)
[2022-03-20 13:55] LABS: ARTERIAL BLD GAS O2 SATURATION 99.4 % (92-100); ARTERIAL BLD GAS TCO2 CT 22.3; ARTERIAL BLOOD GAS BASE EXCESS -0.6 (-2-2); ARTERIAL BLOOD GAS HCO3 21.5 meq/L (22-26); ARTERIAL BLOOD GAS PCO2 25.3 mmHg (35-45); ARTERIAL BLOOD GAS pH 7.55 (7.35-7.45)
[2022-03-20 13:56] LABS: ARTERIAL BLOOD GAS PO2 337.3 mmHg (80-100)
--- NOTE | 2022-03-20 16:00 | NUR ---
LT ART LINE WITH DAMPENED WAVE SIGNAL. UNABLE TO TROUBLE SHOOT TO APPROPRIATE WAVE SIGNAL. SURGICAL CONTACTED TO PLACE NEW ART LINE. NEW LINE PLACED IN RT RADIAL.
--- NOTE | 2022-03-20 17:00 | NUR ---
Sedation vacation not performed due to patient being in the process of being transported by [facility]. Able to open eyes and follow simple commands on current sedation settings.
--- NOTE | 2022-03-20 17:10 | NUR ---
[facility] transportation security officer's at bedside; Report given. Patient alert and able to follow simple commands; VS stable upon tranfer.
== END 2022-03-20 17:20 | disposition short-term general hospital (02) | DRG 673 ==
LOC: SDCO 12:47 → MEDICAL 12:48 → ICU 14:30 → SDCO 14:31 → ICU 14:32 → SURG 03-15 14:50 → ICU 03-19 03:26
PROVIDERS: Internal Medicine Gastroenterology; Internal Medicine Pulmonary Disease; Registered Nurse; Surgery; ADMIT Internal Medicine Nephrology
PROC: 0DJW0ZZ Inspection of Peritoneum, Open Approach (ICD-10-PCS; 2022-03-20)
PROC: 0D9600Z Drainage of Stomach with Drainage Device, Open Approach (ICD-10-PCS; 2022-03-20)
PROC: 02HV33Z Insertion of Infusion Device into Superior Vena Cava, Percutaneous Approach (ICD-10-PCS; 2022-03-20)
PROC: 0JH63XZ Insertion of Tunneled Vascular Access Device into Chest Subcutaneous Tissue and Fascia, Percutaneous Approach (ICD-10-PCS; principal; 2022-03-20 12:00)
DX: N17.0 Acute kidney failure with tubular necrosis (principal); R57.1 Hypovolemic shock; E43 Unspecified severe protein-calorie malnutrition; J96.01 Acute respiratory failure with hypoxia; K91.31 Postprocedural partial intestinal obstruction; D62 Acute posthemorrhagic anemia; E87.2 Acidosis; I10 Essential (primary) hypertension; I73.00 Raynaud's syndrome without gangrene; E78.5 Hyperlipidemia, unspecified; J45.909 Unspecified asthma, uncomplicated; E87.6 Hypokalemia; R04.0 Epistaxis; T39.8X5A Adverse effect of other nonopioid analgesics and antipyretics, not elsewhere classified, initial encounter; T39.395A Adverse effect of other nonsteroidal anti-inflammatory drugs [NSAID], initial encounter; K21.9 Gastro-esophageal reflux disease without esophagitis; F17.220 Nicotine dependence, chewing tobacco, uncomplicated; Z79.899 Other long term (current) drug therapy; Z72.89 Other problems related to lifestyle
CPT/HCPCS: 99233-AI; A4314; A9284; C1751; C9113; J0171; J0330; J0690; J0696; J1100; J1644; J1815; J1940; J2250; J2370; J2405; J2543; J2597; J2704; J3010; J3370; J3411; J3430; J3475; J3480; J7030; J7050; J7060; J7120; P9012; P9016; P9035; P9047

== ENCOUNTER → 2023-10-01 | Outpatient (CLI) | payer OTHER ==
[~2023-10-01] MED LIST: ADALAT CC60 MG PO; ASPIRIN E.C. 8181 MG PO; ASTELIN NASAL S34 ML NS; COMPLETE MULTI1 TAB PO; COZAAR100 MG PO; FLONASEALLERGY NS; HCTZ12.5TAB PO; IRON TABLETS325 MG PO; Iohexol 300 - 10 ML VIAL IV ONE; MASON NATURAL1200 MG PO; MOBIC15 MG PO; PRILOSEC 20MG20 MG PO; ROXICODONE 55 MG/TAB PO; SINGULAIR 110 MG/TAB PO; Triamcinolone 40 MG/ML 1 ML VIAL IJ ONE; VENTOLIN0.09 MG IH; ZOCOR 40MG40 MG PO
== END ==
LOC: COL.RAD 09:59
DX: M25.551 Pain in right hip (principal)
CPT/HCPCS: J0665; J3301; Q9967